=== PATIENT | female | born 1945 | race Caucasian/White ===

== ENCOUNTER 2017-07-15 07:11 | Emergency (ER) | payer OTHER ==
[2017-07-15 07:16] VITALS: BP 99/71; BMI 27.4
[2017-07-15] MEDS ORDERED: ALBUTEROL SO4 2.5/IPRATROPIUM 0.5 INH SOL 3 ML VIAL.NEB. NEB ONE (07:22)
[2017-07-15] MEDS ORDERED: IBUPROFEN 600 MG TABLET (FP) PO ONE (07:22)
--- NOTE | 2017-07-15 07:49 | PDOC ---
History of Present Illness - General Chief Complaint: Cold Symptoms Stated Complaint: flu like symptoms Time Seen by Provider: 07/15/17 07:12 History Source: Patient, Spouse Exam Limitations: Dementia - History of Present Illness Initial Comments: 07/15/17 07:44 71-year-old female with history of dementia and hypothyroidism presents with 1 day of fevers, URI symptoms, GI symptoms. Patient was in her baseline state of health until yesterday, when she developed fever of 101 with nasal congestion and rhinorrhea, dry cough, nausea with 1 episode of nonbloody nonbilious vomiting. Patient took Tylenol and defervesced, slept well throughout the night , and this morning had fever of 103. She was given Mucinex with Tylenol, but when her fever persisted after 30 minutes she was brought to the emergency department. No confusion or neck stiffness or persistent headache, no chest pain or difficulty breathing, no abdominal pain or diarrhea, no dysuria. No recent travel, no history of recurring pneumonia or UTI. Past History - Past Medical History Allergies/Adverse Reactions: Allergies Allergy/AdvReac Type Severity Reaction Status Date / Time Iodinated Contrast- Oral and Allergy Intermediate Hives Verified 07/15/17 07:58 IV Dye Home Medications: Ambulatory Orders Erythromycin 0.5% Eye Ointment [Erythromycin 0.5% Eye Ointment -] 1 applic OS QID #1 tube 07/29/15 Levothyroxine [Synthroid -] 75 mcg PO DAILY 07/29/15 B12 01/19/16 Calcium 01/19/16 Calcium 01/19/16 Lysine 01/19/16 Magnesium 01/19/16 Vitamin D3 01/19/16 Zinc 01/19/16 Aripiprazole [Abilify] 0 mg PO DAILY 07/15/17 Oseltamivir Phosphate [Tamiflu] 75 mg PO BID #10 capsule 07/15/17 COPD: No Dementia: Yes Thyroid Disease: Yes (HYPOTHYROID) - Suicide/Smoking/Psychosocial Hx Smoking Status: No Smoking History: Never smoked Have you smoked in the past 12 months: No Number of Cigarettes Smoked Daily: 0 Hx Alcohol Use: No Drug/Substance Use Hx: No Substance Use Type: None Review of Systems - Review of Systems Constitutional: Yes: Fever. No: Chills HEENTM: Yes: Nose Congestion. No: Throat Pain, Throat Swelling Respiratory: Yes: Cough. No: Shortness of Breath Cardiac (ROS): No: Chest Pain, Edema ABD/GI: Yes: Nausea, Vomiting. No: Diarrhea : No: Dysuria, Frequency, Flank Pain, Hematuria Musculoskeletal: Yes: Muscle Pain. No: Joint Pain Integumentary: No: Rash Neurological: No: Headache All Other Systems: Reviewed and Negative *Physical Exam - Vital Signs Last Vital Signs Temp Pulse Resp BP Pulse Ox 99.9 F H 97 H 18 99/71 93 L 07/15/17 07:11 07/15/17 07:11 07/15/17 07:11 07/15/17 07:11 07/15/17 07:11 - Physical Exam Comments: 07/15/17 07:49 Low-grade fever 99.9, O2 sat 93% GENERAL: The patient is awake, alert, and baseline dementia, in no acute distress speaking full sentences. Seated upright in stretcher, ambulated to ED. HEAD: Normal with no signs of trauma. EYES: PERRL, EOMI, sclera anicteric, conjunctiva clear with no pallor. ENT: oropharynx clear without exudates or swelling. Moist mucous membranes. NECK: Normal range of motion, supple without lymphadenopathy, JVD, or masses. LUNGS: Breath sounds equal, clear to auscultation bilaterally. No wheeze/ crackles. No focally decreased breath sounds. HEART: Regular slight tachycardia, normal S1 and S2 without murmur or rub. ABDOMEN: Soft/nontender/nondistended. BS wnl. No guarding or rebound. No CVA tenderness. No palpable masses. No hepatosplenomegaly. EXTREMITIES: Normal range of motion, no edema. 2+ distal pulses. No cords, erythema, or tenderness. NEUROLOGICAL: Cranial nerves II through XII grossly intact. Normal speech, normal gait. PSYCH: Slightly limited, but normal mood, normal affect. SKIN: Warm, Dry, no rashes or lesions noted. ED Treatment Course - RADIOLOGY Radiology Studies Ordered: Category Date Time Status CHEST PA & LAT [RAD] Stat Radiology 07/15/17 07:22 Ordered Medical Decision Making - Medical Decision Making 07/15/17 07:51 71-year-old female with no severe and underlying medical issues presents with 1 day of fever with URI and GI complaints. No findings on history or physical exam to suggest focal infectious process, seems most consistent with viral process, possibly influenza. Given slightly limited review of systems, we'll check chest x-ray given O2 sat of 93% though lungs are clear, likely reactive airway but r/o pneumonia. r/o uti. influenza swab, will treat empirically with tamiflu given the prevalence at this time cxr, ua, duoneb. motrin for fever since received apap at 6am with the mucinex recheck O2 sat, reassess 07/15/17 08:22 Feels much better after neb and ibuprofen, more alert and still without respiratory distress. O2 sat improved to 96%, temp normalized to 98. Wants to go home and feels well, agrees. Will check CXR and UA then dispo accordingly. 07/15/17 09:29 continues to feel well, much more alert after fever reduced. O2 sats remained improved. + influenza A, cxr with reactive disease but no infiltrate. pt and agree with d/c plan on tamiflu and anti-pyretics, understand strict return criteria especially surrounding respiratory sxs. *DC/Admit/Observation/Transfer Diagnosis at time of Disposition: Fever Qualifiers: Fever type: unspecified Qualified Code(s): R50.9 - Fever, unspecified - Discharge Dispostion Disposition: HOME Condition at time of disposition: Improved - Prescriptions Prescriptions: Oseltamivir Phosphate [Tamiflu] 75 mg PO BID #10 capsule - Referrals - Patient Instructions Printed Discharge Instructions: DI for Influenza -- Adult Additional Instructions: Activity as tolerated. Stay hydrated. Tylenol 1000 mg every 8 hours and/or ibuprofen 600 mg every 8 hours as needed for fever/aches. You have been diagnosed with Influenza Type A. Take Tamiflu as prescribed. This is contagious, so take precautions as we discussed. Continue your medications as previously prescribed by your physician. You should follow up with Dr. Schneider as soon as possible regarding today's emergency department visit. Return to the emergency department for any new or concerning symptoms, particularly difficulty breathing or shortness of breath, severe weakness or confusion, persistently high fevers, chest pain, dehydration. - Post Discharge Activity
[2017-07-15 08:20] LABS: PH,URINE 5.5 (4.5-8); URINE APPEARANCE Clear; URINE BILIRUBIN 1+ (NEGATIVE); URINE GLUCOSE (UA) Negative (NEGATIVE); URINE KETONE Trace (NEGATIVE); URINE NITRITE Negative (NEGATIVE); URINE UROBILINOGEN 0.2 (0.2-1.0)
[2017-07-15 08:33] LABS: URINE BLOOD 2+ (NEGATIVE); URINE PROTEIN 1+ (NEGATIVE)
[2017-07-15 08:34] LABS: URINE COLOR YELLOW
[2017-07-15] MEDS ORDERED: OSELTAMIVIR PHOSPHATE 75 MG CAPSULE PO ONE (08:53)
[2017-07-15 08:59] VITALS: PULSE 87; TEMP 98.9
[2017-07-15] MEDS ORDERED: OSELTAMIVIR PHOSPHATE 75 MG CAPSULE ONE (09:03)
[2017-07-15 14:01] LABS: EPI CELLS FEW /HPF; URINE BACTERIA RARE /hpf (NEGATIVE); URINE MUCUS 1+; URINE RBC 0-1 /hpf (0-3); URINE WBC 0-2 (0-5)
== END 2017-07-15 09:38 | disposition home or self-care (01) ==
LOC: FER 07:11
PROC: 3E0F7GC Introduction of Other Therapeutic Substance into Respiratory Tract, Via Natural or Artificial Opening (ICD-10-PCS; principal; 2017-07-15)
DX: R50.9 Fever, unspecified (principal)
CPT/HCPCS: 71046-TC; 81003; 81015; 87804; 94640; 99281-25

== ENCOUNTER 2020-09-23 22:32 | Emergency (ER) | payer OTHER, MEDICARE ==
[2020-09-23 22:42] VITALS: TEMP 98.4; BMI 25.1
[2020-09-23 23:31] LABS: BASO % 0.7 % (0-2.0); EOS % 2.1 % (0-4.5); HEMATOCRIT 34.4 % (32.4-45.2); HEMOGLOBIN 11.6 GM/dL (10.7-15.3); LYMPH % 20.4 % (8-40); MCH 32.9 pg (25.7-33.7); MCHC 33.7 g/dl (32.0-36.0); MEAN CELL VOLUME 97.7 fl (80-96); MEAN PLT VOLUME 10.5 fl (7.5-11.1); MONO % 9.1 % (3.8-10.2); NEUT % 67.7 % (42.8-82.8); PLATELET COUNT 172 K/MM3 (134-434); RBC 3.52 M/mm3 (3.60-5.2); RDW 12.9 % (11.6-15.6); WHITE BLOOD COUNT 6.4 K/mm3 (4.0-10.0)
[2020-09-23 23:43] LABS: INR 1.08 (0.83-1.09)
[2020-09-23 23:45] LABS: ACTIVATED PTT 30.8 SECONDS (25.2-36.5)
[2020-09-23 23:57] LABS: CALCIUM 9.5 mg/dL (8.5-10.1)
[2020-09-23 23:58] LABS: ALBUMIN 3.3 g/dl (3.4-5.0); BLOOD UREA NITROGEN 17.9 mg/dL (7-18); GLUCOSE,RANDOM 114 mg/dL (74-106)
[2020-09-24 00:01] LABS: CREATININE 0.8 mg/dL (0.55-1.3); SGOT/AST 37 U/L (15-37); SGPT/ALT 21 U/L (13-61)
[2020-09-24 00:03] LABS: BILIRUBIN,TOTAL 0.4 mg/dL (0.2-1); TOT PROT 7.1 g/dl (6.4-8.2)
[2020-09-24 00:04] LABS: ALK PHOS 110 U/L (45-117)
[2020-09-24] MEDS ORDERED: MIDAZOLAM HCL 2 MG/2 ML SINGLE DOSE VIAL IVPUSH ONE (00:16)
[2020-09-24] MEDS ORDERED: MIDAZOLAM HCL 2 MG/2 ML SINGLE DOSE VIAL ONE (00:25)
[2020-09-24 00:45] LABS: CHLORIDE 108 mmol/L (98-107); POTASSIUM 5.2 mmol/L (3.5-5.1); SODIUM 139 mmol/L (136-145)
[2020-09-24 00:47] LABS: ANION GAP 7 MMOL/L (8-16); CO2 24 mmol/L (21-32)
[2020-09-24 03:07] VITALS: BP 104/61; PULSE 87
== END 2020-09-24 03:07 | disposition home or self-care (01) ==
LOC: JER 22:32
PROC: 3E033GC Introduction of Other Therapeutic Substance into Peripheral Vein, Percutaneous Approach (ICD-10-PCS; principal; 2020-09-23)
DX: S00.83XA Contusion of other part of head, initial encounter (principal); S02.2XXA Fracture of nasal bones, initial encounter for closed fracture
CPT/HCPCS: 36415; 70450-TC; 70486-TC; 71045-TC-FY; 72125-TC; 80053; 82962; 84443; 84484; 85025; 85610; 85730; 99285-25